=== PATIENT | female | born 1985 | race Caucasian/White ===

== ENCOUNTER 2019-07-11 23:21 | Emergency (ER) | payer OTHER ==
--- NOTE | 2019-07-11 23:57 | ED ---
Lower Extremity Injury HPI - General Chief Complaint: Extremity Injury, Lower Stated Complaint: Poss Blood Clot R Leg Time Seen by Provider: 07/11/19 23:34 Source: patient, family, RN notes reviewed, old records reviewed Mode of arrival: wheelchair Limitations: physical limitation - History of Present Illness Initial Comments: 33 year old female presents today for concerns for right lower extremity pain, swelling. Patient reports she notices that happened one hour prior to arrival. Patient reports that she noticed some blue enlarged vein on the back of her calf. Patient has no history of blood clots. She is a smoker. Patient denies any chest pain, shortness of breath or headaches. 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 - Related Data Allergies Allergy/AdvReac Type Severity Reaction Status Date / Time No Known Allergies Allergy Verified 07/11/19 23:31 Review of Systems ROS Statement: Those systems with pertinent positive or pertinent negative responses have been documented in the HPI. ROS Other: All systems not noted in ROS Statement are negative. Past Medical History Past Medical History: Asthma History of Any Multi-Drug Resistant Organisms: None Reported Past Surgical History: Section Additional Past Surgical History / Comment(s): LEFT CLAVICLE. SKIN CA LEFT ARM. LEFT FOOT Past Psychological History: No Psychological Hx Reported Smoking Status: Current every day smoker Past Alcohol Use History: None Reported, Occasional Past Drug Use History: None Reported General Exam - General Exam Comments Initial Comments: 33 year old female no distress. Limitations: physical limitation General appearance: alert, in no apparent distress Head exam: Present: atraumatic, normocephalic, normal inspection Eye exam: Present: normal appearance, PERRL, EOMI. Absent: scleral icterus, conjunctival injection, periorbital swelling ENT exam: Present: normal exam, mucous membranes moist Neck exam: Present: normal inspection. Absent: tenderness, meningismus, lymphadenopathy Respiratory exam: Present: normal lung sounds bilaterally. Absent: respiratory distress, wheezes, rales, rhonchi, stridor Cardiovascular Exam: Present: regular rate, normal rhythm, normal heart sounds. Absent: systolic murmur, diastolic murmur, rubs, gallop, clicks GI/Abdominal exam: Present: soft, normal bowel sounds. Absent: distended, tenderness, guarding, rebound, rigid Extremities exam: Present: normal inspection (patient has tender varicose vein over the right calf ), full ROM, normal capillary refill, other. Absent: tenderness, pedal edema, joint swelling, calf tenderness Back exam: Present: normal inspection Neurological exam: Present: alert, oriented X3, CN II-XII intact Psychiatric exam: Present: normal affect, normal mood Skin exam: Present: warm, dry, intact, normal color. Absent: rash Course Vital Signs 07/11/19 07/12/19 23:27 01:26 Temperature 97.8 F 97.9 F Pulse Rate 113 H 88 Respiratory 18 16 Rate Blood Pressure 150/74 127/85 O2 Sat by Pulse 99 96 Oximetry Medical Decision Making - Medical Decision Making 33-year-old female presents today for her lower extremity swelling in her right calf and noticed an engorged vein. She is concerned for blood clot. This time patient's US negative for DVT. Discussed possible superficial venous or process. Discussed warm compresses Motrin Tylenol. Also dilated varicosity vein. She does have some mental tenderness as well. He discussed return parameters and wearing compression stockings. - Radiology Data Radiology results: report reviewed US is negative for acute deep vein thrombosis. Disposition Clinical Impression: Varicose vein of leg Disposition: HOME SELF-CARE Condition: Good Instructions (If sedation given, give patient instructions): Venous Insufficiency (DC) Additional Instructions: Patient is advised to follow up with PCP. Patient to use warm compresses and use compression stockings. Take motrin for pain. Return to ED if any alarming signs or symptoms occur. Is patient prescribed a controlled substance at d/c from ED?: No Referrals: Ernesto Pickard DO [Primary Care Provider] - 1-2 days Time of Disposition: 01:11
--- NOTE | 2019-07-12 00:48 | US ---
EXAMINATION TYPE: US venous doppler duplex LE RT DATE OF EXAM: 07/12/2019 12:15 AM COMPARISON: NONE CLINICAL HISTORY: superficial clot, calf pain. Right calf pain x 1 hour. No hx of DVT. Patient does n ot take any blood thinners. SIDE PERFORMED: Right TECHNIQUE: The lower extremity deep venous system is examined utilizing real time linear array sonog nehal with graded compression, doppler sonography and color-flow sonography. VESSELS IMAGED: External Iliac Vein (EIV) Common Femoral Vein Deep Femoral Vein Greater Saphenous Vein * Femoral Vein Popliteal Vein Small Saphenous Vein * Proximal Calf Veins (* superficial vessels) Right Leg: No evidence of DVT in veins imaged at this time from prox calf veins to EIV. No obvious a bnormalities seen at patient's area of concern right medial calf. IMPRESSION: No evidence of deep venous thrombosis in the right leg. No pathologic fluid collection se en.
[2019-07-12 01:27] VITALS: BP 127/85; PULSE 88; RESP 16; TEMP 97.9
== END 2019-07-12 01:35 | disposition home or self-care (01) ==
LOC: EC 23:21
DX: I83.91 Asymptomatic varicose veins of right lower extremity (principal); F17.200 Nicotine dependence, unspecified, uncomplicated
CPT/HCPCS: 99284

== ENCOUNTER 2019-11-04 20:21 | Emergency (ER) | payer OTHER ==
[2019-11-04 20:27] VITALS: TEMP 98
[2019-11-04] MEDS ORDERED: NITROGLYCERIN SL TABS 0.4 MG TAB SUBLINGUAL STA ×3 (20:47)
[2019-11-04] MEDS ORDERED: ASPIRIN 81 MG PO STA (20:47)
--- NOTE | 2019-11-04 20:51 | ED ---
Chest Pain HPI <Sukhdeep Lancaster - Last Filed: 11/05/19 01:20> - General Source: patient Mode of arrival: wheelchair Limitations: no limitations <Ruslan Lowe - Last Filed: 11/05/19 14:09> - General Chief Complaint: Chest Pain Stated Complaint: Chest Pain Time Seen by Provider: 11/04/19 20:34 - History of Present Illness Initial Comments: Patient is a 34-year-old female presenting to the emergency department with a chief complaint of chest pain. Patient reports the chest pain started about one hour prior to arrival as she was getting out of her vehicle and bringing food home. Patient reports a sudden onset of left-sided chest pressure which is not beginning to radiate to the left upper extremity to the elbow. Patient also reports increased chest discomfort with intubation. She does report increased shortness of breath with inspiration. Does report diaphoretic episode. Patient does report nausea with vomiting. Patient denies history of high blood pressure or cholesterol. She is a smoker. Patient does have significant family history for early cardiac disease.. Denies any headaches, lightheaded, dizziness, headaches or visual changes. She denies taking any aspirin prior to arrival. (Ruslan Lowe) - Related Data Allergies Allergy/AdvReac Type Severity Reaction Status Date / Time No Known Allergies Allergy Verified 07/11/19 23:31 Review of Systems ROS Other: All systems not noted in ROS Statement are negative. <Sukhdeep Lancaster - Last Filed: 11/05/19 01:20> ROS Other: All systems not noted in ROS Statement are negative. <Ruslan Lowe - Last Filed: 11/05/19 14:09> ROS Statement: Those systems with pertinent positive or pertinent negative responses have been documented in the HPI. EKG Findings - EKG Comments: EKG Findings:: EKG shows Sinus tach 112 CO 146 QRS 74 QTc 434 <Sukhdeep Lancaster - Last Filed: 11/05/19 01:20> Past Medical History Past Medical History: Asthma History of Any Multi-Drug Resistant Organisms: None Reported Past Surgical History: Section Additional Past Surgical History / Comment(s): LEFT CLAVICLE. SKIN CA LEFT ARM. LEFT FOOT Past Psychological History: No Psychological Hx Reported Smoking Status: Current every day smoker Past Alcohol Use History: Occasional Past Drug Use History: Marijuana <MynorRuslan - Last Filed: 11/05/19 14:09> General Exam Limitations: no limitations General appearance: alert, in no apparent distress, anxious Head exam: Present: atraumatic, normocephalic, normal inspection Eye exam: Present: normal appearance, PERRL, EOMI Pupils: Present: normal accommodation ENT exam: Present: normal exam, normal oropharynx, mucous membranes moist Neck exam: Present: normal inspection, full ROM Respiratory exam: Present: normal lung sounds bilaterally. Absent: respiratory distress, wheezes, rales, rhonchi, stridor, chest wall tenderness Cardiovascular Exam: Present: regular rate, normal rhythm, normal heart sounds GI/Abdominal exam: Present: soft. Absent: distended, tenderness, guarding Extremities exam: Present: normal inspection, full ROM, other (+2 ulnar and radial pulses bilaterally ) Back exam: Present: normal inspection, full ROM Neurological exam: Present: alert, oriented X3 Psychiatric exam: Present: normal affect, normal mood Skin exam: Present: warm, dry, intact, normal color <MynorRuslan - Last Filed: 11/05/19 14:09> Course Vital Signs 11/04/19 11/04/19 11/04/19 20:24 21:35 22:00 Temperature 98.0 F Pulse Rate 110 H 108 H 84 Respiratory 17 18 16 Rate Blood Pressure 132/89 124/85 108/74 O2 Sat by Pulse 100 Oximetry 11/04/19 11/05/19 11/05/19 23:00 00:00 01:28 Temperature 98.0 F Pulse Rate 84 75 80 Respiratory 18 18 16 Rate Blood Pressure 108/79 100/55 112/84 O2 Sat by Pulse 100 Oximetry Chest Pain [facility] <MynorRuslan - Last Filed: 11/05/19 14:09> - [facility] Patient is a 34-year-old female presenting to emergency Department with chief complaint of chest pain. Left-sided, nonreproducible chest pain with radiation to left upper extremity, diaphoretic episodes with nausea or vomiting. She did have shortness of breath at rest. Patient is a smoker and does have significant family history of early cardiac related disease. Chest x-ray is unremarkable. EKG shows sinus arrhythmia. Patient is perc postiive. D-dimer negative. Initial troponins negative. CBC and CMP is unremarkable. Patient has a heart score of 2. Repeat troponins pending. At this time patient care will be transferred to . (Ruslan Lowe) Disposition Is patient prescribed a controlled substance at d/c from ED?: No <Sukhdeep Lancaster - Last Filed: 11/05/19 01:20> <Ruslan Lowe - Last Filed: 11/05/19 14:09> Clinical Impression: Chest pain, Atypical chest pain Disposition: HOME SELF-CARE Condition: Good Instructions (If sedation given, give patient instructions): Chest Pain (ED) Referrals: Ernesto Pickard DO [Primary Care Provider] - 1-2 days
[2019-11-04 21:10] LABS: Basophils % (A) 1 %; Eosinophils # (A) 0.4 k/uL (0-0.7); Eosinophils % (A) 4 %; HCT 43.5 % (34.0-46.0); HGB 14.6 gm/dL (11.4-16.0); Lymphocytes # (A) 2.9 k/uL (1.0-4.8); Lymphocytes % (A) 29 %; MCH 31.3 pg (25.0-35.0); MCHC 33.5 g/dL (31.0-37.0); MCV 93.5 fL (80.0-100.0); Mean Platelet Volume 7.2; Monocytes # (A) 0.5 k/uL (0-1.0); Monocytes % (A) 5 %; Neutrophils % (A) 60 %; Platelet Count 289 k/uL (150-450); RBC 4.65 m/uL (3.80-5.40); RDW 12.3 % (11.5-15.5); WBC 9.9 k/uL (3.8-10.6)
[2019-11-04 21:14] LABS: Partial Thromboplastin Time 24.9 sec (22.0-30.0); Prothrombin Time 10.1 sec (9.0-12.0)
--- NOTE | 2019-11-04 21:22 | XR ---
EXAMINATION TYPE: XR chest 2V DATE OF EXAM: 11/04/2019 COMPARISON: NONE HISTORY: Chest pain TECHNIQUE: 2 views FINDINGS: Heart and mediastinum are normal. Lungs are clear. Diaphragm is normal. Bony thorax appears normal. IMPRESSION: Normal chest.
[2019-11-04 21:33] LABS: Albumin 4.3 g/dL (3.5-5.0); Calcium 9.8 mg/dL (8.4-10.2); Magnesium 1.7 mg/dL (1.6-2.3); Potassium 3.5 mmol/L (3.5-5.1); Total Bilirubin 0.6 mg/dL (0.2-1.3); Total Protein 7.3 g/dL (6.3-8.2)
[2019-11-05 01:29] VITALS: BP 112/84; PULSE 80; RESP 16
== END 2019-11-05 01:39 | disposition home or self-care (01) ==
LOC: EC 20:21
DX: R07.89 Other chest pain (principal); R11.2 Nausea with vomiting, unspecified; R06.02 Shortness of breath; R61 Generalized hyperhidrosis; I49.9 Cardiac arrhythmia, unspecified; F17.200 Nicotine dependence, unspecified, uncomplicated; Z85.828 Personal history of other malignant neoplasm of skin
CPT/HCPCS: 36415; 71046; 80053; 83735; 84484; 85025; 85379; 85610; 85730; 93005; 99285

== ENCOUNTER 2023-03-06 10:34 | Emergency (ER) | payer OTHER ==
[2023-03-06 11:07] VITALS: BP 146/77; PULSE 72; RESP 18; TEMP 98.2
[2023-03-06] MEDS ORDERED: KETOROLAC 15 MG/ML 1 ML VIAL IM STA (11:15)
--- NOTE | 2023-03-06 11:27 | XR ---
EXAMINATION TYPE: XR clavicle LT DATE OF EXAM: 03/06/2023 CLINICAL HISTORY: pain COMPARISON: NONE TECHNIQUE: 2 views of the left clavicle are submitted. FINDINGS: There is no evidence for fracture or dislocation. AC joint is intact. IMPRESSION: 1. There is no acute fracture or dislocation. ICD 10 NO FRACTURE, INITIAL EVALUATION
[2023-03-06] MEDS ORDERED: ACET/COD 300 MG/30 MG STARTER PACK 6 TAB BTL PO STA (11:58)
[2023-03-06] MEDS ORDERED: IBUPROFEN 600 MG STARTER PACK 4 TAB BTL PO STA (11:58)
--- NOTE | 2023-03-06 12:00 | ED ---
Upper Extremity HPI - General Chief Complaint: Extremity Injury, Upper Stated Complaint: Fall-L shoulder inj Time Seen by Provider: 03/06/23 11:08 Source: patient, RN notes reviewed Mode of arrival: ambulatory Limitations: no limitations - History of Present Illness Initial Comments: This is a 37-year-old female who presents to the emergency department for left shoulder/clavicle pain after a fall. Last night, the patient states that she was in the shower when she slipped and fell, landing on her left arm. Denies hitting her head or sustaining any loss of consciousness. She has since been wearing an arm sling and states that the arm is difficult to move due to the pain. Denies any fevers, chills, sore throat, cough, dyspnea, chest pain, palpitations, abdominal pain, nausea, vomiting, diarrhea, back pain, or headaches. MD Complaint: Injury to:: left, shoulder - Related Data Allergies Allergy/AdvReac Type Severity Reaction Status Date / Time No Known Allergies Allergy Verified 03/06/23 11:07 Review of Systems ROS Statement: Those systems with pertinent positive or pertinent negative responses have been documented in the HPI. ROS Other: All systems not noted in ROS Statement are negative. Past Medical History Past Medical History: Asthma History of Any Multi-Drug Resistant Organisms: None Reported Past Surgical History: Section Additional Past Surgical History / Comment(s): LEFT CLAVICLE. SKIN CA LEFT ARM. LEFT FOOT Past Psychological History: No Psychological Hx Reported Smoking Status: Never smoker Past Alcohol Use History: Occasional Past Drug Use History: Marijuana General Exam Limitations: no limitations General appearance: alert, in no apparent distress Head exam: Present: atraumatic, normocephalic, normal inspection Respiratory exam: Present: normal lung sounds bilaterally. Absent: respiratory distress, wheezes, rales, rhonchi, stridor Cardiovascular Exam: Present: regular rate, normal rhythm, normal heart sounds. Absent: systolic murmur, diastolic murmur, rubs, gallop, clicks Extremities exam: Present: other (Tenderness to palpation over the lateral aspect of the left clavicle. No step-offs. Limited range of motion of the left upper extremity secondary to pain. 2+ radial pulses.) Neurological exam: Present: alert, oriented X3, CN II-XII intact Psychiatric exam: Present: normal affect, normal mood Skin exam: Present: warm, dry, intact, normal color. Absent: rash Course Vital Signs 03/06/23 11:05 Temperature 98.2 F Pulse Rate 72 Respiratory 18 Rate Blood Pressure 146/77 O2 Sat by Pulse 99 Oximetry Medical Decision Making - Medical Decision Making This is a 37-year-old female who presents to the emergency department for left arm pain after a fall. Was pt. sent in by a medical professional or institution? @ -No Did you speak to anyone other than the patient for history? @ -No Did you review nursing and triage notes? @ -Yes, and I agree, it is accurate with regards to the patient's symptoms. Were old charts reviewed? @ -No Differential Diagnosis? @ -Differential Arm Injury: Fracture, dislocation, contusion, sprain, this is not meant to be an all- inclusive list. EKG interpreted by me (3pts min.)? @ -Not obtained X-rays interpreted by me (1pt min.)? @ -X-ray of the left clavicle obtained. My interpretation identifies no acute fractures. CT interpreted by me (1pt min.)? @ -Not obtained U/S interpreted by me (1pt. min.)? @ -Not obtained What testing was considered but not performed? (CT, X-rays, U/S, labs)? Why? @ -None What meds were considered but not given? Why? @ -None Did you discuss the management of the patient with other professionals? @ -No Did you reconcile home meds? @ -No Was smoking cessation discussed for >3mins.? @ -No Was critical care preformed (if so, how long)? @ -No Were there social determinants of health that impacted care today? How? (Homelessness, low income, unemployed, alcoholism, drug addiction, transportation, low edu. Level, literacy, decrease access to med. care, fpc, rehab)? @ -No Was there de-escalation of care discussed even if they declined? (Discuss DNR or withdrawal of care, Hospice)? @ -No What co-morbidities impacted this encounter? (DM, HTN, Smoking, COPD, CAD, Cancer, CVA, Hep., AIDS, mental health diagnosis, sleep apnea, morbid obesity)? @ -None Was patient admitted / discharged? @ -Discharged. X-ray of the left clavicle obtained revealing no acute process. Toradol administered for pain relief, which the patient states was helpful. Advised ibuprofen and Tylenol as needed for pain relief and applying ice for 15- 20 minutes every 2-3 hours. I did advised against significant use of the arm sling due to the risks of developing a frozen shoulder. Undiagnosed new problem with uncertain prognosis? @ -None Drug Therapy requiring intensive monitoring for toxicity (Heparin, Nitro, Insulin, Cardizem)? @ -None Were any procedures done? @ -None Diagnosis/symptom? @ -Left clavicle/shoulder pain Acute, or Chronic, or Acute on Chronic? @ -Acute Uncomplicated (without systemic symptoms) or Complicated (systemic symptoms)? @ -Uncomplicated Side effects of treatment? @ -None Exacerbation, Progression, or Severe Exacerbation] @ -Not applicable Poses a threat to life or bodily function? @ -This will limit her use of the left arm to some extent. Return precautions reviewed in depth, the patient is instructed to return to the emergency department with any new, worsening, or concerning symptoms. Patient verbalized understanding. This case was discussed in detail with the attending ED physician, Dr. Sanchez. Presentation, findings, and treatment plan discussed in detail as well. - Radiology Data Radiology results: report reviewed, image reviewed Disposition Clinical Impression: Fall, Left shoulder pain Disposition: HOME SELF-CARE Instructions (If sedation given, give patient instructions): Shoulder Pain (ED) Additional Instructions: Return to the emergency department with any new, worsening, or concerning symptoms. Alternate with ibuprofen and Tylenol as needed for pain relief. Apply ice for 15-20 minutes every 2-3 hours. Follow up with your primary care provider in 1-2 days. Is patient prescribed a controlled substance at d/c from ED?: No Referrals: Micah Craig MD [Primary Care Provider] - 1-2 days
== END 2023-03-06 12:12 | disposition home or self-care (01) ==
LOC: EC 10:34
DX: M25.512 Pain in left shoulder (principal); J45.909 Unspecified asthma, uncomplicated; F12.90 Cannabis use, unspecified, uncomplicated; W01.0XXA Fall on same level from slipping, tripping and stumbling without subsequent striking against object, initial encounter
CPT/HCPCS: 73000; 99283; 96372; J1885